=== PATIENT | female | born 2000 | race Caucasian/White ===

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

== ENCOUNTER 2020-09-24 21:44 | Emergency (ER) | payer BC, MEDICAID ==
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
--- NOTE | 2020-09-25 09:45 | CR ---
Chest: 2 views of the chest were obtained. Comparison: Prior chest x-ray 11/29/18. Heart size and mediastinum are within normal limits. Lungs are clear with no acute parenchymal change. No acute osseous finding is appreciated. Impression: 1. Nothing acute is appreciated on 2 view chest x-ray. Diagnostic code #1
== END 2020-09-24 22:49 | disposition home or self-care (01) ==
LOC: JD.ED 21:44
DX: T59.891A Toxic effect of other specified gases, fumes and vapors, accidental (unintentional), initial encounter (principal); J68.0 Bronchitis and pneumonitis due to chemicals, gases, fumes and vapors; Z72.0 Tobacco use; Z91.018 Allergy to other foods; Z91.040 Latex allergy status
CPT/HCPCS: 71046; 71046-26; 99282; 99284-25

== ENCOUNTER 2020-10-06 19:00 | Emergency (ER) | payer BC, MEDICAID ==
[2020-10-06] MEDS ORDERED: cefTRIAXone 1 GM, Lidocaine 1% 2.1 ML IM ONE ×2 (20:25)
--- NOTE | 2020-10-06 20:40 | EDM.PDOC ---
ED HPI GENERAL MEDICAL PROBLEM - General Chief Complaint: ENT Problem Stated Complaint: TOOTH PAIN/RT CHEEK SWOLLEN Time Seen by Provider: 10/06/20 19:11 Source of Information: Reports: Patient History Limitations: Reports: No Limitations - History of Present Illness INITIAL COMMENTS - FREE TEXT/NARRATIVE: The patient was seen earlier today for a dental issue. She apparently had caries filled. This was in the upper teeth in the range of 2 and 3. Subsequent to this there has been an extreme amount of pain. She has had dental work done in the past and has never experienced pain of the severity. There is also some swelling and redness of the right side of her face. LMP approximately 3 weeks ago. Recent home test negative. Allergies include latex and also she is intolerant of morphine. 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 She takes no medications on a regular basis. No chronic conditions otherwise. She has been taking ibuprofen and similar drugs during the day without relief. Her dentist has not been available by telephone and she came to the ER because of that level of discomfort. There has been no fever or any other issue. No fever. No respiratory symptoms. Patient is a smoker. Right Cheek Pain Score (Numeric/FACES): 8 - Related Data Allergies Allergy/AdvReac Type Severity Reaction Status Date / Time grapefruit Allergy Anaphylactic Verified 09/24/20 21:51 Shock latex Allergy Rash Verified 09/24/20 21:51 Home Meds: Home Meds . 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 MEAT History: Reports: Endometriosis Musculoskeletal History: Reports: Connective Tissue Disease Neurological History: Reports: None Psychiatric History: Reports: Anxiety, Depression, PTSD Endocrine/Metabolic History: Reports: None Hematologic History: Reports: None Immunologic History: Reports: None Oncologic (Cancer) History: Reports: None Dermatologic History: Reports: None - Infectious Disease History Infectious Disease History: Reports: None - Past Surgical History HEENT Surgical History: Reports: Oral Surgery, Other (See Below) Cardiovascular Surgical History: Reports: None Respiratory Surgical History: Reports: None Female Surgical History: Reports: D&C Neurological Surgical History: Reports: None Musculoskeletal Surgical History: Reports: Shoulder Surgery, Other (See Below) Other Musculoskeletal Surgeries/Procedures:: 6 surgeries, bilateral knee reconstruction Dermatological Surgical History: Reports: None Social & Family History - Family History Family Medical History: No Pertinent Family History - Tobacco Use Tobacco Use Status *Q: Current Every Day Tobacco User Years of Tobacco use: 1 Packs/Tins Daily: 0.2 - Caffeine Use Caffeine Use: Reports: None - Recreational Drug Use Recreational Drug Use: No - Living Situation & Occupation Living situation: Reports: (), with Significant Other (Drake fragosorimia + his family), with Family (1 child) Occupation: Unemployed ED ROS ENT - Review of Systems Review Of Systems: Comprehensive ROS is negative, except as noted in HPI. ED EXAM, ENT - Physical Exam Exam: See Below Text/Narrative:: On exam the patient is alert and in no distress but looks uncomfortable. Head normocephalic atraumatic. PERRLA, EOMI. Neck is supple. Chest symmetrical, breath sounds full and equal bilaterally. Heart is regular. Abdomen soft nontender. No flank tenderness. No peripheral edema cyanosis or clubbing of the digits. Skin is warm and dry. Neurologically the patient is grossly intact with fluent speech and no sensory or motor deficit. On examination of the oral cavity there is tenderness and teeth in the range of 2-3. No drainage. No obvious evidence of abscess. There is puffiness and tenderness of the right cheek area. No erythema at this point. Course - Vital Signs Text/Narrative:: Discussed fully with patient and her at bedside. There is evidence of an early odontogenic soft tissue infection in the cheek on the right side. The patient will seek medical attention tomorrow first thing. She is going to see a dentist and if she cannot be seen early in the day in [place] she will go to [facility]. She will receive 1 g of Rocephin IM. Further antibiotic use at the discretion of dentist seeing her tomorrow. Discussed comfort medications. Patient has been taking ibuprofen insufficient amounts that I do not want to give her Toradol. She is leery of having narcotic analgesia. She is being issued to 1 mg Ativan's to take when she gets home she may repeat the 1 mg dose after 1 hour if she is not comfortable. Strict precautions for return to ER. Last Recorded V/S: Last Vital Signs Temp 36.6 C 10/06/20 19:16 Pulse 77 10/06/20 19:16 Resp 17 10/06/20 19:16 BP 126/84 10/06/20 19:16 Pulse Ox 100 10/06/20 19:16 - Orders/Labs/Meds Orders: Active Orders 24 hr Category Date Time Status LORazepam [Ativan] Med 10/06/20 20:44 Once 1 mg PO ONETIME ONE Medication Orders Lorazepam (Lorazepam 1 Mg Tab) 1 mg PO ONETIME ONE Stop: 10/06/20 20:45 Labs: Laboratory Tests 10/06/20 Range/Units 19:40 Urine HCG, Qual Negative (NEGATIVE) Meds: Medications Generic Name Dose Route Start Last Admin Trade Name Freq PRN Reason Stop Dose Admin Lorazepam 1 mg 10/06/20 20:44 Lorazepam 1 Mg Tab PO 10/06/20 20:45 ONETIME ONE Discontinued Medications Generic Name Dose Route Start Last Admin Trade Name Freq PRN Reason Stop Dose Admin Ceftriaxone Sodium 1 gm/ 0 gm 10/06/20 20:25 Lidocaine HCl 2.1 ml IM 10/06/20 20:26 ONETIME ONE Lorazepam 1 mg 10/06/20 20:43 Lorazepam 1 Mg Tab PO 10/06/20 20:44 ONETIME ONE Departure - Departure Time of Disposition: 20:47 Disposition: Home, Self-Care 01 Condition: Good Clinical Impression: Cheek swelling, Pain, dental - Discharge Information Referrals: PCP,None [Primary Care Provider] - Forms: ED Department Discharge Additional Instructions: You have been seen for dental pain after a visit with your dentist and also swelling of the cheek adjacent to the area of the dental work. There is concerned that there may be an early soft tissue infection in this area. You are being given 1 g of Rocephin by injection in the muscle. This should suffice until you see a dentist tomorrow so a decision can be made about further antibiotic treatment. The for your comfort we are giving you to 1 mg Ativan is to take. Take 1 when you are ready to go to bed. You may repeat it an hour later if you are still uncomfortable. As you have been taking ibuprofen and medication such as this I do not want to give you more in that category. As you have had problems with narcotics in the past we will use sedation to get you through the night. Any fever or other issue that you cannot manage in the meantime return to the ER immediately. You will see a dentist tomorrow without fail we are certain. Sepsis Event Note (ED) - Evaluation Sepsis Screening Result: No Definite Risk - Focused Exam Vital Signs: Vital Signs Temp Pulse Resp BP Pulse Ox 10/06/20 19:16 36.6 C 77 17 126/84 100 - My Orders Last 24 Hours: My Active Orders 10/06/20 20:44 LORazepam [Ativan] 1 mg PO ONETIME ONE - Assessment/Plan Last 24 Hours: My Active Orders 10/06/20 20:44 LORazepam [Ativan] 1 mg PO ONETIME ONE
[2020-10-06] MEDS ORDERED: LORazepam 1 MG Tab PO ONE ×2 (20:43→20:44)
== END 2020-10-06 21:01 | disposition home or self-care (01) ==
LOC: JD.ED 19:00
DX: K08.89 Other specified disorders of teeth and supporting structures (principal); Z91.018 Allergy to other foods; Z91.040 Latex allergy status; Z72.0 Tobacco use
CPT/HCPCS: 81025; 96372; 99283; A9270; J0696

== ENCOUNTER 2021-04-09 14:03 | Emergency (ER) | payer BC, MEDICAID ==
--- NOTE | 2021-04-09 14:51 | EDM.PDOC ---
ED HPI GENERAL MEDICAL PROBLEM - General Chief Complaint: ENT Problem Stated Complaint: JAW\\ EAR PAIN Time Seen by Provider: 04/09/21 14:34 Source of Information: Reports: Patient, RN Notes Reviewed History Limitations: Reports: No Limitations - History of Present Illness INITIAL COMMENTS - FREE TEXT/NARRATIVE: Patient is a 20-year-old female presenting to the emergency department with complaints of left upper jaw pain with radiation into her left ear. Reports symptoms began a few days ago and have been progressively worsening. She is unsure if it is coming from a tooth or her ear. Denies any fever, chills, nausea, or vomiting. She has been taking Advil with little relief. She reports that she did have her lower wisdom teeth out, however her upper wisdom teeth "never came in". Left Jaw Pain Score (Numeric/FACES): 8 - Related Data Allergies Allergy/AdvReac Type Severity Reaction Status Date / Time grapefruit Allergy Anaphylactic Verified 04/09/21 14:23 Shock latex Allergy Rash Verified 04/09/21 14:23 Home Meds: Home Meds Acetaminophen/Codeine [Tylenol with Codeine No.3 300MG/30MG] 1 tab PO Q4H PRN #12 tab 04/09/21 [Rx] Amoxicillin/Clavulanate K [Augmentin 875-125 MG] 1 tab PO BID 10 Days #20 tab 04/09/21 [Rx] Past Medical History HEENT History: Reports: None Cardiovascular History: Reports: None Respiratory History: Reports: None Gastrointestinal History: Reports: None Genitourinary History: Reports: None 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 History: 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: Endometriosis Musculoskeletal History: Reports: Connective Tissue Disease Neurological History: Reports: None Psychiatric History: Reports: Anxiety, Depression, PTSD Endocrine/Metabolic History: Reports: None Hematologic History: Reports: None Immunologic History: Reports: None Oncologic (Cancer) History: Reports: None Dermatologic History: Reports: None - Infectious Disease History Infectious Disease History: Reports: None - Past Surgical History Head Surgeries/Procedures: Reports: None HEENT Surgical History: Reports: Oral Surgery, Other (See Below) Cardiovascular Surgical History: Reports: None Respiratory Surgical History: Reports: None GI Surgical History: Reports: None Female Surgical History: Reports: D&C Endocrine Surgical History: Reports: None Neurological Surgical History: Reports: None Musculoskeletal Surgical History: Reports: Shoulder Surgery, Other (See Below) Other Musculoskeletal Surgeries/Procedures:: 6 surgeries, bilateral knee reconstruction Oncologic Surgical History: Reports: None Dermatological Surgical History: Reports: None Social & Family History - Family History Family Medical History: No Pertinent Family History - Tobacco Use Tobacco Use Status *Q: Current Every Day Tobacco User Years of Tobacco use: 2 Packs/Tins Daily: 2.5 - Caffeine Use Caffeine Use: Reports: Coffee - Recreational Drug Use Recreational Drug Use: No - Living Situation & Occupation Living situation: Reports: (), with Significant Other (Boyfriend + his family), with Family (1 child) Occupation: Unemployed ED ROS ENT - Review of Systems Review Of Systems: Comprehensive ROS is negative, except as noted in HPI. ED EXAM, ENT - Physical Exam Exam: See Below Exam Limited By: No Limitations General Appearance: Alert, WD/WN, No Apparent Distress Mouth/Throat: Normal Inspection, Normal Lips, Normal Oropharynx, Other (Small area of tenderness and induration in the gums proximal to tooth #2. No obvious dental caries or dental fracture.) Respiratory/Chest: No Respiratory Distress, Lungs Clear, Normal Breath Sounds, No Accessory Muscle Use, Chest Non-Tender Cardiovascular: Normal Peripheral Pulses, Regular Rate, Rhythm, No Edema, No Gallop, No JVD, No Murmur, No Rub Neurological: Alert, Oriented, CN II-XII Intact, Normal Cognition, Normal Gait, Normal Reflexes, No Motor/Sensory Deficits Psychiatric: Normal Affect, Normal Mood Skin: Warm, Dry, Intact, Normal Color, No Rash Course - Vital Signs Last Recorded V/S: Last Vital Signs Temp 99.0 F 04/09/21 14:21 Pulse 73 04/09/21 14:21 Resp 18 04/09/21 14:21 BP 117/89 04/09/21 14:21 Pulse Ox 99 04/09/21 14:21 - Re-Assessments/Exams Free Text/Narrative Re-Assessment/Exam: Patient is a 20-year-old female presenting to the emergency department complaints of left upper jaw pain with radiation to her left ear. Exam of the left ear is normal. She does have a very small area of tenderness and induration palpable to the gums above tooth #2. No obvious dental caries or fractures of that tooth. Patient will be started on Augmentin as well as Tylenol with codeine. Discussed that she should follow-up with a dentist as soon as possible. She verbalized understanding. Discharge instructions as documented. Departure - Departure Time of Disposition: 14:43 Disposition: Home, Self-Care 01 Condition: Good Clinical Impression: Pain, dental - Discharge Information *PRESCRIPTION DRUG MONITORING PROGRAM REVIEWED*: Yes *COPY OF PRESCRIPTION DRUG MONITORING REPORT IN PATIENT SERGEY: No Prescriptions: Amoxicillin/Clavulanate K [Augmentin 875-125 MG] 1 tab PO BID 10 Days #20 tab Acetaminophen/Codeine [Tylenol with Codeine No.3 300MG/30MG] 1 tab PO Q4H PRN #12 tab PRN Reason: Pain Instructions: Dental Pain Referrals: Lucrecia Owen PA-C [Primary Care Provider] - Forms: ED Department Discharge Additional Instructions: You were seen in the emergency department today for left upper jaw pain radiating to your ear. On exam, there is an area in your left upper gums that is tender which is likely a localized area of possible infection. You have been started on Augmentin which is an antibiotic. Take this medication as prescribed. Recommend routine ibuprofen 600 mg every 6 hours. For pain not relieved by this, a prescription of Tylenol with codeine has been provided. Take this only as prescribed. Do not work or drive for 12 hours after taking this as it can be sedating. Recommend follow-up with your dentist as soon as possible. If you fail to experience improvement over the next few days or develop any worsening symptoms, please not hesitate to return to the emergency department for reevaluation. Sepsis Event Note (ED) - Focused Exam Vital Signs: Vital Signs Temp Pulse Resp BP Pulse Ox 04/09/21 14:21 99.0 F 73 18 117/89 99
== END 2021-04-09 15:10 | disposition home or self-care (01) ==
LOC: JD.ED 14:03
DX: K08.89 Other specified disorders of teeth and supporting structures (principal); Z72.0 Tobacco use; Z91.018 Allergy to other foods; Z91.040 Latex allergy status
CPT/HCPCS: 99283

== ENCOUNTER 2021-05-31 18:34 | Emergency (ER) | payer BC, MEDICAID ==
[2021-05-31] MEDS ORDERED: predniSONE 20 MG Tab PO ONE (19:09)
--- NOTE | 2021-05-31 19:19 | EDM.PDOC ---
ED HPI GENERAL MEDICAL PROBLEM - General Chief Complaint: Allergic Reaction Stated Complaint: REACTION TO HPV VACCINE Time Seen by Provider: 05/31/21 19:02 Source of Information: Reports: Patient, RN Notes Reviewed History Limitations: Reports: No Limitations - History of Present Illness INITIAL COMMENTS - FREE TEXT/NARRATIVE: Patient is a 21-year-old female presenting to the emergency department complaints of pain and swelling to her left upper arm. Reports 2 days ago she got her second HPV vaccination. Immediately following the vaccine, she began having pain in her arm as well as felt "a little knot ". The swelling has increased since that time. States it hurts to move her shoulder. She is had no known fever, but states that she has felt "hot "intermittently. She contacted her primary care provider today who advised there is a localized reaction recommended cool compresses, ibuprofen, and Zyrtec. She has not been able to apply ice to the area. Did take ibuprofen earlier today did not have access to Zyrtec but did take 2 Benadryl with little relief. Denies any shortness of breath or itching in her throat. Had no reaction to her first HPV vaccination. Left Upper Arm Pain Score (Numeric/FACES): 7 - Related Data Allergies Allergy/AdvReac Type Severity Reaction Status Date / Time grapefruit Allergy Anaphylactic Verified 04/09/21 14:23 Shock latex Allergy Rash Verified 04/09/21 14:23 Home Meds: Home Meds . 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 History: Reports: Endometriosis Musculoskeletal History: Reports: Connective Tissue Disease Neurological History: Reports: None Psychiatric History: Reports: Anxiety, Depression, PTSD Endocrine/Metabolic History: Reports: None Hematologic History: Reports: None Immunologic History: Reports: None Oncologic (Cancer) History: Reports: None Dermatologic History: Reports: None - Infectious Disease History Infectious Disease History: Reports: None - Past Surgical History Head Surgeries/Procedures: Reports: None HEENT Surgical History: Reports: Oral Surgery, Other (See Below) Cardiovascular Surgical History: Reports: None Respiratory Surgical History: Reports: None GI Surgical History: Reports: None Female Surgical History: Reports: D&C Endocrine Surgical History: Reports: None Neurological Surgical History: Reports: None Musculoskeletal Surgical History: Reports: Shoulder Surgery, Other (See Below) Other Musculoskeletal Surgeries/Procedures:: 6 surgeries, bilateral knee reconstruction Oncologic Surgical History: Reports: None Dermatological Surgical History: Reports: None Social & Family History - Family History Family Medical History: No Pertinent Family History - Caffeine Use Caffeine Use: Reports: Coffee - Living Situation & Occupation Living situation: Reports: (), with Significant Other (Boyfriend + his family), with Family (1 child) Occupation: Unemployed ED ROS ALLERGIC REACTION - Review of Systems Review Of Systems: Comprehensive ROS is negative, except as noted in HPI. ED EXAM GENERAL NO PERIP PULSE - Physical Exam Exam: See Below Exam Limited By: No Limitations General Appearance: Alert, WD/WN, No Apparent Distress Respiratory/Chest: No Respiratory Distress, Lungs Clear, Normal Breath Sounds, No Accessory Muscle Use, Chest Non-Tender Cardiovascular: Normal Peripheral Pulses, Regular Rate, Rhythm, No Edema, No Gallop, No JVD, No Murmur, No Rub Extremities: Other (3 cm area of redness and induration to the left deltoid. No open areas or drainage.) Neurological: Alert, Oriented, CN II-XII Intact, Normal Cognition, Normal Gait, Normal Reflexes, No Motor/Sensory Deficits Psychiatric: Normal Affect, Normal Mood Course - Vital Signs Last Recorded V/S: Last Vital Signs Temp 98.1 F 05/31/21 18:47 Pulse 88 05/31/21 18:47 Resp 16 05/31/21 18:47 BP 126/87 05/31/21 18:47 Pulse Ox 100 05/31/21 18:47 - Orders/Labs/Meds Meds: Medications Discontinued Medications Generic Name Dose Route Start Last Admin Trade Name Ofelia PRN Reason Stop Dose Admin Prednisone 20 mg 05/31/21 19:09 Prednisone 20 Mg Tab PO 05/31/21 19:10 ONETIME ONE - Re-Assessments/Exams Free Text/Narrative Re-Assessment/Exam: Patient is a 21-year-old female presenting to the emergency department with loca lized reaction to second dose of HPV vaccination. She received this 2 days ago reports it has been getting progressively more painful. On exam, there is a 3 cm area of induration and redness. I will give patient single dose of prednisone 20 mg. Recommend she purchase [id number] Rita, use ice intermittently, and routine ibuprofen. Discussed return precautions. Discharge instructions as documented. Departure - Departure Time of Disposition: 19:16 Disposition: Home, Self-Care 01 Condition: Good Clinical Impression: Adverse reaction to human papillomavirus vaccine Qualifiers: Encounter type: initial encounter Qualified Code(s): T50.B95A - Adverse effect of other viral vaccines, initial encounter - Discharge Information *PRESCRIPTION DRUG MONITORING PROGRAM REVIEWED*: No *COPY OF PRESCRIPTION DRUG MONITORING REPORT IN PATIENT SERGEY: No Referrals: Lucrecia Owen PA-C [Primary Care Provider] - Additional Instructions: Use ibuprofen 600 mg every 6 hours as needed for pain. Apply ice for 20 minutes every 2 hours to the area. Purchase [id number] Rita and take this once daily. If you should experience any new or worsening symptoms of concern, please not hesitate to return to ER for reevaluation. Sepsis Event Note (ED) - Evaluation Sepsis Screening Result: No Definite Risk - Focused Exam Vital Signs: Vital Signs Temp Pulse Resp BP Pulse Ox 05/31/21 18:47 98.1 F 88 16 126/87 100
== END 2021-05-31 19:30 | disposition home or self-care (01) ==
LOC: JD.ED 18:34
DX: M79.602 Pain in left arm (principal); T50.B95A Adverse effect of other viral vaccines, initial encounter; Z91.040 Latex allergy status; Z91.018 Allergy to other foods
CPT/HCPCS: 99283; J7512

== ENCOUNTER 2021-07-22 09:37 | Emergency (ER) | payer BC, MEDICAID ==
[2021-07-22] MEDS ORDERED: Ondansetron 4 MG/2 ML SDV IVPUSH ONE (10:01)
[2021-07-22] MEDS ORDERED: Sodium Chloride 0.9% 10 ML Syringe FLUSH PRN (10:01)
[2021-07-22] MEDS ORDERED: Sodium Chloride 0.9% 1,000 ML IV SCH (10:15)
[2021-07-22] MEDS ORDERED: Lactated Ringers 1,000 ML IV SCH (10:30)
[2021-07-22] MEDS ORDERED: HYDROmorphone 0.5 MG/0.5 ML Syringe IVPUSH ONE (10:34)
[2021-07-22] MEDS ORDERED: Metoclopramide 10 MG/2 ML SDV IVPUSH ONE (10:35)
[2021-07-22 10:53] LABS: CORONAVIRUS COVID-19 NAA NEGATIVE (NEGATIVE)
== END 2021-07-22 12:30 | disposition home or self-care (01) ==
LOC: JD.ED 09:37
DX: A09 Infectious gastroenteritis and colitis, unspecified (principal); Z91.018 Allergy to other foods; Z91.040 Latex allergy status; Z20.822 Contact with and (suspected) exposure to COVID-19
CPT/HCPCS: 0240U; 36415; 80053; 82009; 83605; 83690; 83735; 84702; 85025; 86140; 96374; 96375; 99284; J1170; J2765; J7030

== ENCOUNTER 2021-09-26 10:57 | Day surgery (SDC) | payer BC, MEDICAID ==
[2021-09-26] MEDS ORDERED: Ondansetron 4 MG/2 ML SDV IVPUSH ONE (11:25)
[2021-09-26] MEDS ORDERED: Sodium Chloride 0.9% 10 ML Syringe FLUSH PRN (11:25)
[2021-09-26] MEDS ORDERED: Sodium Chloride 0.9% 1,000 ML IV SCH (11:30)
[2021-09-26] MEDS ORDERED: HYDROmorphone 0.5 MG/0.5 ML Syringe IVPUSH ONE (12:03)
[2021-09-26] MEDS ORDERED: ceFAZolin 2 GM in Sodium Chloride 0.9% 50 ML IV ONE (14:24)
[2021-09-26] MEDS ORDERED: Bupivacaine 0.5%/EPINEPHrine 1:200,000 50 ML MDV ONE (15:03)
[2021-09-26] MEDS ORDERED: Iopamidol 612 MG/ML 50 ML SDV ONE (15:03)
[2021-09-26] MEDS ORDERED: Sodium Chloride 0.9% 50 ML SDV ONE (15:03)
[2021-09-26] MEDS ORDERED: fentaNYL 100 MCG/2 ML SDV ONE ×2 (15:34→16:32)
[2021-09-26] MEDS ORDERED: Midazolam 1 MG/ML 2 ML SDV ONE (15:34)
[2021-09-26] MEDS ORDERED: Propofol 200 MG/20 ML SDV ONE (15:34)
[2021-09-26] MEDS ORDERED: Lidocaine 1% 5 ML VIAL ONE (15:34)
[2021-09-26] MEDS ORDERED: Rocuronium 50 MG/5 ML Vial ONE (15:35)
[2021-09-26] MEDS ORDERED: ceFAZolin 1 GM Vial ONE (16:27)
[2021-09-26] MEDS ORDERED: Ondansetron 4 MG/2 ML SDV ONE (16:28)
[2021-09-26] MEDS ORDERED: Dexamethasone 4 MG/ML 5 ML MDV ONE (16:28)
[2021-09-26] MEDS ORDERED: HYDROmorphone 0.5 MG/0.5 ML Syringe IVPUSH PRN (16:48)
[2021-09-26] MEDS ORDERED: fentaNYL 100 MCG/2 ML SDV IVPUSH PRN (16:48)
[2021-09-26] MEDS ORDERED: Ondansetron 4 MG/2 ML SDV IVPUSH PRN (16:48)
== END 2021-09-26 18:30 | disposition home or self-care (01) ==
LOC: JD.ED 10:57 → JD.SDS 14:17
PROVIDERS: ATTEND Surgery
DX: K82.8 Other specified diseases of gallbladder (principal); F17.210 Nicotine dependence, cigarettes, uncomplicated; Z91.040 Latex allergy status; Z91.018 Allergy to other foods; Z98.890 Other specified postprocedural states; Z01.812 Encounter for preprocedural laboratory examination; Z20.822 Contact with and (suspected) exposure to COVID-19
CPT/HCPCS: 36415; 47563; 76000; 76705; 80053; 81001; 82248; 82977; 83690; 83735; 85025; 86140; 87635; J0690; J1100; J1170; J2250; J2405; J2704; J2710; J3010; J3490; J7030; Q9967; 00790; 99140; 99285; U0002

== ENCOUNTER 2021-09-28 12:31 | Emergency (ER) | payer BC, MEDICAID ==
[2021-09-28] MEDS ORDERED: Lactated Ringers 1,000 ML IV ONE (13:14)
[2021-09-28] MEDS ORDERED: Ondansetron 4 MG/2 ML SDV IVPUSH ONE (13:14)
[2021-09-28] MEDS ORDERED: HYDROmorphone 1 MG/ML Syringe IVPUSH ONE (13:14)
== END 2021-09-28 15:48 | disposition home or self-care (01) ==
LOC: JD.ED 12:31
DX: R10.13 Epigastric pain (principal); Z91.040 Latex allergy status; Z88.5 Allergy status to narcotic agent; Z91.018 Allergy to other foods; Z90.49 Acquired absence of other specified parts of digestive tract; Z72.0 Tobacco use
CPT/HCPCS: 36415; 74019; 80053; 83605; 83690; 85025; 96374; 96375; 99284; J1170; J2405; J7120

== ENCOUNTER 2022-03-29 06:59 | Emergency (ER) | payer BC, MEDICAID ==
[2022-03-29] MEDS ORDERED: Cyclobenzaprine 10 MG Tab PO ONE (07:47)
[2022-03-29] MEDS ORDERED: Ketorolac 15 MG/ML SDV IM ONE (07:47)
== END 2022-03-29 09:45 | disposition home or self-care (01) ==
LOC: JD.ED 06:59
DX: S22.41XA Multiple fractures of ribs, right side, initial encounter for closed fracture (principal); F17.210 Nicotine dependence, cigarettes, uncomplicated; Z91.018 Allergy to other foods; Z91.040 Latex allergy status; Z88.6 Allergy status to analgesic agent; Z79.899 Other long term (current) drug therapy; Z90.49 Acquired absence of other specified parts of digestive tract; X50.1XXA Overexertion from prolonged static or awkward postures, initial encounter
CPT/HCPCS: 71046; 71046-26; 96372; 99283; A9270-GY; J1885

== ENCOUNTER 2022-04-21 12:12 | Emergency (ER) | payer MEDICAID ==
[2022-04-21] MEDS ORDERED: Sodium Chloride 0.9% 10 ML Syringe FLUSH PRN (14:52)
[2022-04-21] MEDS ORDERED: Lactated Ringers 1,000 ML IV ONE (14:53)
[2022-04-21] MEDS ORDERED: Famotidine 20 MG/2 ML SDV IVPUSH ONE (14:53)
[2022-04-21] MEDS ORDERED: Ketorolac 30 MG/ML SDV IVPUSH ONE (14:53)
[2022-04-21] MEDS ORDERED: Ondansetron 4 MG/2 ML SDV IVPUSH ONE (14:53)
[2022-04-21 15:37] LABS: ESTIMATED GFR 107 mL/min (>60)
== END 2022-04-21 16:53 | disposition home health service (06) ==
LOC: JD.ED 12:12
DX: R10.84 Generalized abdominal pain (principal); R11.10 Vomiting, unspecified; R19.7 Diarrhea, unspecified; Z91.018 Allergy to other foods; Z91.040 Latex allergy status; Z88.5 Allergy status to narcotic agent
CPT/HCPCS: 36415; 80053; 83690; 84702; 85025; 96361; 96374; 96375; 99284; J1885; J2405; J3490; J7120; 99283

== ENCOUNTER 2022-04-24 13:00 | Emergency (ER) | payer MEDICAID ==
[2022-04-24] MEDS ORDERED: Sodium Chloride 0.9% 1,000 ML IV ONE (13:58)
[2022-04-24] MEDS ORDERED: Metoclopramide 10 MG/2 ML SDV IVPUSH ONE (13:58)
[2022-04-24] MEDS ORDERED: Sodium Chloride 0.9% 10 ML Syringe FLUSH PRN (13:58)
[2022-04-24] MEDS ORDERED: diphenhydrAMINE 50 MG/ML SDV IVPUSH ONE (13:58)
[2022-04-24] MEDS ORDERED: Ketorolac 30 MG/ML SDV IVPUSH ONE (13:58)
[2022-04-24] MEDS ORDERED: HYDROmorphone 0.5 MG/0.5 ML Syringe IVPUSH ONE (15:36)
[2022-04-24 15:42] LABS: CORONAVIRUS COVID-19 NAA POSITIVE (NEGATIVE)
== END 2022-04-24 16:40 | disposition home or self-care (01) ==
LOC: JD.ED 13:00
DX: U07.1 COVID-19 (principal); Z72.0 Tobacco use; Z88.5 Allergy status to narcotic agent; Z91.018 Allergy to other foods; Z91.040 Latex allergy status; Z79.899 Other long term (current) drug therapy
CPT/HCPCS: 0240U; 36415; 80053; 85025; 96361; 96374; 96375; 99284; J1170; J1200; J1885; J2765; J3490; J7030; 99282

== ENCOUNTER 2022-06-17 18:55 | Emergency (ER) | payer BC, MEDICAID ==
[2022-06-17] MEDS ORDERED: Acetaminophen/HYDROcodone 325-5 MG Tab PO ONE ×2 (22:16→22:17)
== END 2022-06-17 22:55 | disposition home or self-care (01) ==
LOC: JD.ED 18:55
DX: O03.9 Complete or unspecified spontaneous abortion without complication (principal); Z91.018 Allergy to other foods; Z91.040 Latex allergy status; Z88.5 Allergy status to narcotic agent
CPT/HCPCS: 36415; 76817; 80048; 84702; 85025; 99284; A9270

== ENCOUNTER 2022-06-21 20:12 | Emergency (ER) | payer MEDICAID ==
[2022-06-21] MEDS ORDERED: Sodium Chloride 0.9% 1,000 ML IV STA (20:45)
[2022-06-21] MEDS ORDERED: Sodium Chloride 0.9% 10 ML Syringe FLUSH PRN (20:45)
[2022-06-21] MEDS ORDERED: Ondansetron 4 MG/2 ML SDV IVPUSH ONE (20:59)
[2022-06-21] MEDS ORDERED: Ketorolac 30 MG/ML SDV IVPUSH ONE ×2 (20:59→22:14)
[2022-06-21] MEDS ORDERED: HYDROmorphone 0.5 MG/0.5 ML Syringe IVPUSH ONE (22:50)
== END 2022-06-21 23:26 | disposition home or self-care (01) ==
LOC: JD.ED 20:12
DX: O03.9 Complete or unspecified spontaneous abortion without complication (principal); Z91.018 Allergy to other foods; Z91.040 Latex allergy status; Z88.5 Allergy status to narcotic agent
CPT/HCPCS: 36415; 76817; 80053; 81001; 84702; 85025; 96361; 96374; 96375; 96376; 99284; J1170; J1885; J2405; J3490; J7030

== ENCOUNTER 2022-06-27 15:02 | Emergency (ER) | payer MEDICAID ==
[2022-06-27] MEDS ORDERED: Sodium Chloride 0.9% 10 ML Syringe FLUSH PRN (15:13)
[2022-06-27] MEDS ORDERED: Ondansetron 4 MG/2 ML SDV IVPUSH ONE (15:30)
[2022-06-27] MEDS ORDERED: Sodium Chloride 0.9% 1,000 ML IV ONE (15:30)
[2022-06-27] MEDS ORDERED: Ketorolac 30 MG/ML SDV IVPUSH ONE (15:30)
[2022-06-27 16:26] LABS: CORONAVIRUS COVID-19 NAA NEGATIVE (NEGATIVE)
== END 2022-06-27 17:47 | disposition home or self-care (01) ==
LOC: JD.ED 15:02
DX: J10.1 Influenza due to other identified influenza virus with other respiratory manifestations (principal); Z91.040 Latex allergy status; Z88.5 Allergy status to narcotic agent; Z91.018 Allergy to other foods; Z20.822 Contact with and (suspected) exposure to COVID-19
CPT/HCPCS: 0240U; 36415; 71045; 80053; 83690; 83735; 84484; 85025; 85379; 85610; 85730; 93005; 96361; 96374; 96375; 99285; J1885; J2405; J3490; J7030

== ENCOUNTER 2022-06-28 11:33 | Emergency (ER) | payer MEDICAID ==
[2022-06-28] MEDS ORDERED: fentaNYL 100 MCG/2 ML SDV IVPUSH ONE ×2 (12:16→13:36)
[2022-06-28] MEDS ORDERED: Lactated Ringers 1,000 ML IV SCH (12:30)
[2022-06-28] MEDS ORDERED: Iopamidol 612 MG/ML 100 ML Bottle IVPUSH ONE (13:16)
[2022-06-28] MEDS ORDERED: Sodium Chloride 0.9% 10 ML Syringe FLUSH PRN (13:16)
[2022-06-28] MEDS ORDERED: Acetaminophen/HYDROcodone 325-10 MG Tab PO ONE (15:03)
== END 2022-06-28 15:35 | disposition home or self-care (01) ==
LOC: JD.ED 11:33
DX: R10.11 Right upper quadrant pain (principal); R07.81 Pleurodynia; Z91.018 Allergy to other foods; Z91.040 Latex allergy status; Z88.5 Allergy status to narcotic agent; Z72.0 Tobacco use
CPT/HCPCS: 36415; 71260; 74177; 84703; 93005; 96361; 96374; 96376; 99285; A9270; J3010; J3490; J7120; Q9967

== ENCOUNTER 2022-07-02 13:33 | Emergency (ER) | payer MEDICAID | END 2022-07-02 20:01 | LOC: JD.ED 13:33 | DX: Z53.21 Procedure and treatment not carried out due to patient leaving prior to being seen by health care provider (principal) | CPT/HCPCS: 93005 ==

== ENCOUNTER 2022-07-03 02:18 | Emergency (ER) | payer MEDICAID ==
[2022-07-03] MEDS ORDERED: Acetaminophen/HYDROcodone 325-5 MG Tab PO ONE (03:55)
== END 2022-07-03 05:03 | disposition home or self-care (01) ==
LOC: JD.ED 02:18
DX: R07.89 Other chest pain (principal); Z91.040 Latex allergy status; Z88.5 Allergy status to narcotic agent; Z86.16 Personal history of COVID-19
CPT/HCPCS: 71045; 71045-26; 93005; 99285; A9270-GY

== ENCOUNTER 2022-07-19 19:44 | Emergency (ER) | payer OTHER, MEDICAID ==
[2022-07-19] MEDS: Sodium Chloride 0.9% 10 ML Syringe FLUSH PRN ×2 (19:45→20:53)
[2022-07-19] MEDS ORDERED: Ondansetron 4 MG/2 ML SDV IVPUSH ONE (20:17)
[2022-07-19] MEDS ORDERED: HYDROmorphone 0.5 MG/0.5 ML Syringe IVPUSH ONE (20:17)
[2022-07-19] MEDS ORDERED: Sodium Chloride 0.9% 10 ML Syringe FLUSH PRN (20:49)
[2022-07-19] MEDS ORDERED: Iopamidol 755 Mg/ML 100 ML Bottle IVPUSH ONE (20:49)
[2022-07-19] MEDS ORDERED: HYDROmorphone 1 MG/ML Syringe IVPUSH ONE (21:55)
== END 2022-07-19 22:26 | disposition home or self-care (01) ==
LOC: JD.ED 19:44
DX: S06.0X0A Concussion without loss of consciousness, initial encounter (principal); S39.012A Strain of muscle, fascia and tendon of lower back, initial encounter; S30.1XXA Contusion of abdominal wall, initial encounter; S20.211A Contusion of right front wall of thorax, initial encounter; Z91.040 Latex allergy status; Z88.5 Allergy status to narcotic agent; Z91.018 Allergy to other foods; V49.40XA Driver injured in collision with unspecified motor vehicles in traffic accident, initial encounter; Y92.410 Unspecified street and highway as the place of occurrence of the external cause
CPT/HCPCS: 36415; 70450; 71260; 72125; 73552; 74177; 80053; 80306; 80307; 81001; 83690; 84703; 85025; 96374; 96375; 96376; 99284; J1170; J2405; J3490; Q9967

== ENCOUNTER 2022-07-26 11:29 | Emergency (ER) | payer MEDICAID ==
[2022-07-26] MEDS ORDERED: Ondansetron 4 MG/2 ML SDV IVPUSH ONE (12:22)
[2022-07-26] MEDS ORDERED: Ketorolac 30 MG/ML SDV IVPUSH ONE (12:22)
[2022-07-26] MEDS ORDERED: Sodium Chloride 0.9% 1,000 ML IV STA (12:22)
[2022-07-26] MEDS ORDERED: HYDROmorphone 0.5 MG/0.5 ML Syringe IVPUSH ONE (12:22)
[2022-07-26] MEDS ORDERED: diphenhydrAMINE 50 MG/ML SDV IVPUSH ONE (12:23)
[2022-07-26 13:28] LABS: CORONAVIRUS COVID-19 NAA NEGATIVE (NEGATIVE)
[2022-07-26 13:42] LABS: ESTIMATED GFR 92 mL/min (>60)
== END 2022-07-26 14:20 | disposition home or self-care (01) ==
LOC: JD.ED 11:29
DX: G43.909 Migraine, unspecified, not intractable, without status migrainosus (principal); T59.91XA Toxic effect of unspecified gases, fumes and vapors, accidental (unintentional), initial encounter; J68.0 Bronchitis and pneumonitis due to chemicals, gases, fumes and vapors; F17.210 Nicotine dependence, cigarettes, uncomplicated; Z91.040 Latex allergy status; Z91.018 Allergy to other foods; Z88.5 Allergy status to narcotic agent; Z86.16 Personal history of COVID-19; Z20.822 Contact with and (suspected) exposure to COVID-19
CPT/HCPCS: 0241U; 36415; 71046; 80053; 85025; 86140; 96361; 96374; 96375; 99284; J1170; J1200; J1885; J2405; J7030

== ENCOUNTER 2022-09-12 13:39 | Emergency (ER) | payer BC, MEDICAID ==
[2022-09-12] MEDS ORDERED: Ketorolac 30 MG/ML SDV IVPUSH ONE (15:03)
[2022-09-12] MEDS ORDERED: HYDROmorphone 0.5 MG/0.5 ML Syringe IVPUSH ONE ×3 (15:03→17:13)
[2022-09-12] MEDS ORDERED: diphenhydrAMINE 50 MG/ML SDV IVPUSH ONE (15:03)
[2022-09-12] MEDS ORDERED: Sodium Chloride 0.9% 10 ML Syringe FLUSH PRN (15:03)
[2022-09-12] MEDS ORDERED: Metoclopramide 10 MG/2 ML SDV IVPUSH ONE (15:03)
[2022-09-12 16:23] LABS: CORONAVIRUS COVID-19 NAA NEGATIVE (NEGATIVE)
[2022-09-12] MEDS ORDERED: Dexamethasone 10 MG/ML SDV IVPUSH ONE (17:13)
== END 2022-09-12 17:24 | disposition home or self-care (01) ==
LOC: JD.ED 13:39
DX: G43.909 Migraine, unspecified, not intractable, without status migrainosus (principal); Z91.040 Latex allergy status; Z88.5 Allergy status to narcotic agent; Z91.018 Allergy to other foods; Z79.899 Other long term (current) drug therapy; Z20.822 Contact with and (suspected) exposure to COVID-19
CPT/HCPCS: 0241U; 36415; 80053; 85025; 86140; 87651; 96374; 96375; 96376; 99283; J1100; J1170; J1200; J1885; J2765; J3490

== ENCOUNTER 2022-12-23 01:53 | Emergency (ER) | payer MEDICAID ==
[2022-12-23 02:38] LABS: BASOPHILS ABSOLUTE AUTO 0.03 K/mm3 (0.01-0.08); BASOPHILS PERCENT AUTO 0.3 % (0.1-1.2); EOSINOPHILS ABSOLUTE AUTO 0.16 K/mm3 (0.04-0.36); EOSINOPHILS PERCENT AUTO 1.7 (0.7-5.8); HEMATOCRIT 35.7 % (34.1-44.9); HEMOGLOBIN 12.1 gm/dl (11.2-15.7); IMMATURE GRAN ABSOLUTE AUTO 0.01 K/mm3 (0.00-0.10); IMMATURE GRAN PERCENT AUTO 0.1 % (<=1.0); LYMPHOCYTES ABSOLUTE AUTO 2.06 K/mm3 (1.18-3.74); LYMPHOCYTES PERCENT AUTO 21.9 % (19.3-51.7); MEAN CORPUSCULAR HEMOGLOBIN 31.7 pg (25.6-32.2); MEAN CORPUSCULAR HGB CONC 33.9 g/dl (32.2-35.5); MEAN CORPUSCULAR VOLUME 93.5 fl (79.4-94.8); MEAN PLATELET VOLUME 8.7 fl (9.4-12.3); MONOCYTES ABSOLUTE AUTO 0.79 K/mm3 (0.24-0.36); MONOCYTES PERCENT AUTO 8.4 % (4.7-12.5); NEUTROPHILS ABSOLUTE AUTO 6.36 K/mm3 (1.56-6.13); NEUTROPHILS PERCENT AUTO 67.6 % (34.0-71.1); PLATELET COUNT,PLT 218 K/mm3 (182-369); RED BLOOD CELL COUNT 3.82 M/mm3 (3.98-5.22); WHITE BLOOD CELL COUNT,WBC 9.41 K/mm3 (3.98-10.04)
[2022-12-23 03:07] LABS: A/G RATIO 1.1 (1-2); ALBUMIN 3.1 g/dl (3.4-5.0); ANION GAP 11.1 (5-15); BILIRUBIN TOTAL 0.6 mg/dL (0.2-1.0); CALCIUM 7.9 mg/dL (8.5-10.1); EST CRCL DRUG DOSING (CG) 72.05 mL/min; POTASSIUM,K 3.1 mEq/L (3.5-5.1); TSH 1.627 uIU/mL (0.358-3.74)
[2022-12-23] MEDS ORDERED: Sodium Chloride 0.9% 1,000 ML IV ONE (03:53)
[2022-12-23 03:55] LABS: BARBITURATE SCREEN,URINE NEGATIVE (CUTOFF=200); BENZODIAZEPINES SCREEN,URINE NEGATIVE (CUTOFF=150); BUPRENORPHINE SCREEN,URINE NEGATIVE (CUTOFF=10); METHADONE SCREEN, URINE NEGATIVE (CUTOFF=200); METHAMPHETAMINES SCREEN, URINE PRESUMPTIVE POSITIVE (CUTOFF=500); OXYCODONE SCREEN,URINE NEGATIVE (CUT0FF=100); PROPOXYPHENE SCREEN,URINE NEGATIVE (CUTOFF=300); THC SCREEN,URINE 20 NG/ML NEGATIVE (CUTOFF=50)
[2022-12-23 03:57] LABS: AMPHETAMINES SCREEN, URINE PRESUMPTIVE POSITIVE (CUTOFF=500)
[2022-12-23] MEDS: Potassium Chloride 20 MEQ Tab.ER PO ONE ×2 (08:15→08:28)
[2022-12-23] MEDS ORDERED: Sodium Chloride 0.9% 500 ML IV ONE (09:09)
[2022-12-23] MEDS: Potassium Chloride 10 MEQ in Premix Bag 1 BAG IV SCH ×4 (09:40→13:01)
[2022-12-23] MEDS ORDERED: Lactated Ringers 1,000 ML IV SCH (13:00)
== END 2022-12-23 18:24 | disposition home or self-care (01) ==
LOC: JD.ED 01:53
DX: T43.591A Poisoning by other antipsychotics and neuroleptics, accidental (unintentional), initial encounter (principal); T37.5X1A Poisoning by antiviral drugs, accidental (unintentional), initial encounter; Z87.891 Personal history of nicotine dependence; Z86.16 Personal history of COVID-19; Z91.040 Latex allergy status; Z88.5 Allergy status to narcotic agent; Z91.018 Allergy to other foods
CPT/HCPCS: 36415; 80053; 80143; 80179; 80306; 80307; 81025; 83735; 84443; 85025; 93005; 96361; 96365; 96366; 99284; J3480; J7030; J7120; 93010; A9270-GY

== ENCOUNTER 2023-03-08 11:52 | Emergency (ER) | payer OTHER ==
[2023-03-08] MEDS ORDERED: Ibuprofen 800 MG Tab PO ONE (16:05)
[2023-03-08] MEDS ORDERED: Acetaminophen 325 MG Tab PO ONE (16:05)
== END 2023-03-08 16:15 | disposition home or self-care (01) ==
LOC: JD.ED 11:52
DX: S16.1XXA Strain of muscle, fascia and tendon at neck level, initial encounter (principal); J45.909 Unspecified asthma, uncomplicated; Z91.018 Allergy to other foods; Z91.040 Latex allergy status; Z88.5 Allergy status to narcotic agent; Z79.51 Long term (current) use of inhaled steroids; Z86.16 Personal history of COVID-19; V49.40XA Driver injured in collision with unspecified motor vehicles in traffic accident, initial encounter
CPT/HCPCS: 72040; 99283; A9270

== ENCOUNTER 2023-04-28 16:51 | Emergency (ER) | payer MEDICAID, OTHER ==
[2023-04-28] MEDS ORDERED: Prochlorperazine 5 MG Tab PO ONE ×2 (18:25→18:28)
[2023-04-28] MEDS ORDERED: Prochlorperazine 5 MG Tab PO STA (19:11)
== END 2023-04-28 19:27 | disposition home or self-care (01) ==
LOC: JD.ED 16:51
DX: O21.9 Vomiting of pregnancy, unspecified (principal); O99.891 Other specified diseases and conditions complicating pregnancy; R10.2 Pelvic and perineal pain; O99.511 Diseases of the respiratory system complicating pregnancy, first trimester; J45.909 Unspecified asthma, uncomplicated; Z86.16 Personal history of COVID-19; O99.331 Smoking (tobacco) complicating pregnancy, first trimester; F17.210 Nicotine dependence, cigarettes, uncomplicated; Z91.018 Allergy to other foods; Z91.040 Latex allergy status; Z88.5 Allergy status to narcotic agent; Z3A.01 Less than 8 weeks gestation of pregnancy
CPT/HCPCS: 81025; 99284; Q0164; 99283

== ENCOUNTER 2023-05-10 09:33 | Emergency (ER) | payer OTHER ==
[2023-05-10] MEDS ORDERED: Sodium Chloride 0.9% 10 ML Syringe FLUSH PRN (09:50)
[2023-05-10] MEDS ORDERED: Sodium Chloride 0.9% 1,000 ML IV SCH (10:00)
[2023-05-10 11:20] LABS: BASOPHILS ABSOLUTE AUTO 0.1 K/mm3 (0.0-0.2); EOSINOPHILS ABSOLUTE AUTO 0.1 K/mm3 (0.0-0.4); EOSINOPHILS PERCENT AUTO 2.3 % (0.0-6.0); HEMATOCRIT 37.4 % (37.0-47.0); IMMATURE GRAN ABSOLUTE AUTO 0.01 K/mm3 (0.00-0.05); IMMATURE GRAN PERCENT AUTO 0.2 % (0.0-0.4); LYMPHOCYTES ABSOLUTE AUTO 2.5 K/mm3 (1.0-4.8); LYMPHOCYTES PERCENT AUTO 40.1 % (24.0-44.0); MEAN CORPUSCULAR HGB CONC 34.8 g/dl (32.0-36.0); MEAN CORPUSCULAR VOLUME 92.1 fl (83.0-99.0); MEAN PLATELET VOLUME 8.8 fl (9.4-12.3); MONOCYTES ABSOLUTE AUTO 0.5 K/mm3 (0.0-0.8); MONOCYTES PERCENT AUTO 8.8 % (0.0-8.0); NEUTROPHILS ABSOLUTE AUTO 2.9 K/mm3 (1.8-7.7); NEUTROPHILS PERCENT AUTO 47.6 % (41.0-71.0); PLATELET COUNT,PLT 259 K/mm3 (150-400); RED BLOOD CELL COUNT 4.06 M/mm3 (4.10-5.30); WHITE BLOOD CELL COUNT,WBC 6.14 K/mm3 (3.9-11.3)
[2023-05-10 11:38] LABS: ALBUMIN 3.7 g/dl (3.4-5.0); ANION GAP 10.2 (5-15); BILIRUBIN TOTAL 0.4 mg/dL (0.2-1.0); BUN/CREATININE RATIO 13.8 (14-18); CALCIUM 8.9 mg/dL (8.5-10.1); CREATININE 0.8 mg/dL (0.55-1.02); EST CRCL DRUG DOSING (CG) 101.81 mL/min; POTASSIUM,K 3.2 mEq/L (3.5-5.1); PROTEIN TOTAL,TP 7.4 g/dl (6.4-8.2)
[2023-05-10 12:07] LABS: APPEARANCE,URINE CLEAR (Clear); BILIRUBIN,URINE NEGATIVE (Negative); COLOR,URINE YELLOW (Yellow); GLUCOSE,URINE NEGATIVE (Negative); KETONES,URINE NEGATIVE (Negative); LEUKOCYTE ESTERASE,URINE TRACE (Negative); NITRITE,URINE NEGATIVE (Negative); OCCULT BLOOD,URINE NEGATIVE (Negative); PROTEIN,URINE NEGATIVE (Negative); UROBILINOGEN,URINE 0.2 (0.2-1.0)
[2023-05-10 12:13] LABS: BACTERIA,URINE MODERATE /hpf (FEW); MUCUS,URINE MODERATE /hpf (FEW); RBC,URINE 0-5 /hpf (0-5)
[2023-05-10] MEDS ORDERED: HYDROmorphone 0.5 MG/0.5 ML Syringe IVPUSH ONE (12:30)
== END 2023-05-10 13:30 | disposition home or self-care (01) ==
LOC: JD.ED 09:33
DX: O9A.211 Injury, poisoning and certain other consequences of external causes complicating pregnancy, first trimester (principal); S16.1XXA Strain of muscle, fascia and tendon at neck level, initial encounter; S43.402A Unspecified sprain of left shoulder joint, initial encounter; S63.502A Unspecified sprain of left wrist, initial encounter; O99.511 Diseases of the respiratory system complicating pregnancy, first trimester; J45.909 Unspecified asthma, uncomplicated; Z79.899 Other long term (current) drug therapy; Z88.5 Allergy status to narcotic agent; Z91.040 Latex allergy status; Z91.018 Allergy to other foods; Z3A.09 9 weeks gestation of pregnancy; V49.40XA Driver injured in collision with unspecified motor vehicles in traffic accident, initial encounter
CPT/HCPCS: 36415; 70450; 71045; 72125; 73030; 73090; 76802; 80053; 81001; 83690; 84702; 85025; 96374; 99284; J1170; J3490; J7030

== ENCOUNTER 2023-05-27 06:25 | Emergency (ER) | payer SELFPAY ==
[2023-05-27] MEDS ORDERED: Acetaminophen/HYDROcodone 325-5 MG Tab PO ONE (07:03)
== END 2023-05-27 09:18 | disposition home or self-care (01) ==
LOC: JD.ED 06:25
DX: R07.9 Chest pain, unspecified (principal); M25.551 Pain in right hip; M25.552 Pain in left hip; M25.562 Pain in left knee; Z86.16 Personal history of COVID-19; F17.210 Nicotine dependence, cigarettes, uncomplicated; Z90.49 Acquired absence of other specified parts of digestive tract; Z79.899 Other long term (current) drug therapy; Z91.040 Latex allergy status; Z91.018 Allergy to other foods; Z88.5 Allergy status to narcotic agent; V49.49XA Driver injured in collision with other motor vehicles in traffic accident, initial encounter
CPT/HCPCS: 71046; 72170; 73564; 81025; 99283; A9270

== ENCOUNTER 2023-09-02 16:48 | Emergency (ER) | payer SELFPAY ==
[2023-09-02] MEDS: Ketorolac 30 MG/ML SDV IM ONE (19:58)
[2023-09-02] MEDS: Amoxicillin/Clavulanate K 875-125 MG Tab PO ONE (19:59)
[2023-09-02] MEDS: Bupivacaine 0.5%/EPINEPHrine 1:200,000 30 ML SDV INJECT ONE (20:25)
== END 2023-09-02 20:50 | disposition home or self-care (01) ==
LOC: JD.ED 16:48
DX: K04.7 Periapical abscess without sinus (principal); K02.9 Dental caries, unspecified; Z90.49 Acquired absence of other specified parts of digestive tract; Z79.899 Other long term (current) drug therapy
CPT/HCPCS: 64400; 96372; 99282; A9270; J1885; J3490; 99283

== ENCOUNTER 2023-09-03 12:44 | Emergency (ER) | payer SELFPAY ==
[2023-09-03] MEDS: Sodium Chloride 0.9% 10 ML Syringe FLUSH PRN ×2 (15:00→15:18)
[2023-09-03] MEDS: Iopamidol 612 MG/ML 100 ML Bottle IVPUSH ONE (15:18)
[2023-09-03] MEDS: Ketorolac 15 MG/ML SDV IVPUSH ONE (15:43)
[2023-09-03] MEDS: cefTRIAXone 2 GM in Sodium Chloride 0.9% 100 ML IV ONE (15:44)
[2023-09-03 16:16] LABS: BASOPHILS PERCENT AUTO 0.6 % (0.0-1.0); EOSINOPHILS ABSOLUTE AUTO 0.2 K/mm3 (0.0-0.4); EOSINOPHILS PERCENT AUTO 2.9 % (0.0-6.0); HEMATOCRIT 39.1 % (37.0-47.0); IMMATURE GRAN ABSOLUTE AUTO 0.01 K/mm3 (0.00-0.05); IMMATURE GRAN PERCENT AUTO 0.1 % (0.0-0.4); LYMPHOCYTES ABSOLUTE AUTO 2.6 K/mm3 (1.0-4.8); LYMPHOCYTES PERCENT AUTO 36.7 % (24.0-44.0); MEAN CORPUSCULAR HEMOGLOBIN 30.4 pg (28.0-32.0); MEAN CORPUSCULAR HGB CONC 33.2 g/dl (32.0-36.0); MEAN CORPUSCULAR VOLUME 91.6 fl (83.0-99.0); MONOCYTES ABSOLUTE AUTO 0.6 K/mm3 (0.0-0.8); MONOCYTES PERCENT AUTO 9.1 % (0.0-8.0); NEUTROPHILS ABSOLUTE AUTO 3.5 K/mm3 (1.8-7.7); NEUTROPHILS PERCENT AUTO 50.6 % (41.0-71.0); PLATELET COUNT,PLT 203 K/mm3 (150-400); RED BLOOD CELL COUNT 4.27 M/mm3 (4.10-5.30)
[2023-09-03 16:41] LABS: A/G RATIO 1.1 (1-2); ALBUMIN 3.4 g/dl (3.4-5.0); ANION GAP 8.2 (5-15); BILIRUBIN TOTAL 0.5 mg/dL (0.2-1.0); C-REACTIVE PROTEIN 0.63 mg/dL (<0.30); CALCIUM 8.3 mg/dL (8.5-10.1); CREATININE 0.6 mg/dL (0.55-1.02); EST CRCL DRUG DOSING (CG) 129.41 mL/min; POTASSIUM,K 4.2 mEq/L (3.5-5.1); PROTEIN TOTAL,TP 6.6 g/dl (6.4-8.2)
[2023-09-03 16:46] LABS: LACTIC ACID 0.4 mmol/L (0.4-2.0)
== END 2023-09-03 17:31 | disposition home or self-care (01) ==
LOC: JD.ED 12:44
DX: K04.7 Periapical abscess without sinus (principal); L03.213 Periorbital cellulitis; Z86.16 Personal history of COVID-19; Z79.899 Other long term (current) drug therapy; Z88.5 Allergy status to narcotic agent; Z91.018 Allergy to other foods; Z91.040 Latex allergy status
CPT/HCPCS: 36415; 70487; 80053; 83605; 85025; 86140; 96365; 96375; 99284; J0696; J1885; J3490; Q9967

== ENCOUNTER 2024-04-28 20:54 | Emergency (ER) | payer SELFPAY ==
[2024-04-28] MEDS: Magnesium Citrate Solution 296 ML Bottle PO ONE (22:02)
== END 2024-04-28 22:08 ==
LOC: JD.ED 20:54 → JD.TELEMED 20:54 → EDSTATUS 21:10 → JD.ED 22:08
DX: T18.9XXA Foreign body of alimentary tract, part unspecified, initial encounter (principal); Z86.16 Personal history of COVID-19; Z79.899 Other long term (current) drug therapy; Z91.018 Allergy to other foods; Z91.040 Latex allergy status; Z88.5 Allergy status to narcotic agent; W44.A0XA Battery unspecified, entering into or through a natural orifice, initial encounter
CPT/HCPCS: 74019; 99284; A9270

== ENCOUNTER 2025-01-06 17:51 | Emergency (ER) | payer BC, MEDICAID, OTHER ==
[2025-01-06] MEDS: diphenhydrAMINE 50 MG/ML SDV IVPUSH ONE (18:46)
[2025-01-06] MEDS: Ketorolac 30 MG/ML SDV IVPUSH ONE (18:49)
== END 2025-01-06 20:49 | disposition home or self-care (01) ==
LOC: JD.ED 17:51
DX: G43.909 Migraine, unspecified, not intractable, without status migrainosus (principal); Z88.5 Allergy status to narcotic agent; Z91.018 Allergy to other foods; Z91.040 Latex allergy status; Z79.899 Other long term (current) drug therapy; Z86.16 Personal history of COVID-19; Z90.49 Acquired absence of other specified parts of digestive tract
CPT/HCPCS: 96361; 96374; 96375; 99283; J1200; J1885; J2765; J7030

== ENCOUNTER 2025-01-11 08:36 | Emergency (ER) | payer MEDICAID ==
[2025-01-11] MEDS: diphenhydrAMINE 50 MG/ML SDV IVPUSH ONE (10:10)
[2025-01-11 10:11] LABS: BASOPHILS ABSOLUTE AUTO 0.1 K/mm3 (0.0-0.2); BASOPHILS PERCENT AUTO 1.0 % (0.0-1.0); EOSINOPHILS ABSOLUTE AUTO 0.2 K/mm3 (0.0-0.4); EOSINOPHILS PERCENT AUTO 3.3 % (0.0-6.0); IMMATURE GRAN ABSOLUTE AUTO 0.02 K/mm3 (0.00-0.05); IMMATURE GRAN PERCENT AUTO 0.3 % (0.0-0.4); LYMPHOCYTES ABSOLUTE AUTO 1.4 K/mm3 (1.0-4.8); LYMPHOCYTES PERCENT AUTO 23.8 % (24.0-44.0); MEAN PLATELET VOLUME 10.0 fl (9.4-12.3); MONOCYTES ABSOLUTE AUTO 0.8 K/mm3 (0.0-0.8); MONOCYTES PERCENT AUTO 13.0 % (0.0-8.0); NEUTROPHILS ABSOLUTE AUTO 3.4 K/mm3 (1.8-7.7); NEUTROPHILS PERCENT AUTO 58.6 % (41.0-71.0); NRBC ABSOLUTE 0.00 (0.00-0.02); NRBC PERCENT 0.0 % (0.0-0.2); PLATELET COUNT,PLT 203 K/mm3 (150-400); RED BLOOD CELL COUNT 3.91 M/mm3 (4.10-5.30); WHITE BLOOD CELL COUNT,WBC 5.79 K/mm3 (3.9-11.3)
[2025-01-11] MEDS: Ondansetron 4 MG/2 ML SDV IVPUSH ONE (10:11)
[2025-01-11] MEDS: Ketorolac 30 MG/ML SDV IVPUSH ONE (10:11)
[2025-01-11 10:32] LABS: APPEARANCE,URINE CLEAR (Clear); GLUCOSE,URINE NEGATIVE (Negative); OCCULT BLOOD,URINE TRACE-INTACT (Negative)
[2025-01-11 10:48] LABS: BUPRENORPHINE SCREEN,URINE PRESUMPTIVE POSITIVE (CUTOFF=10); METHADONE SCREEN, URINE NEGATIVE (CUTOFF=200); METHAMPHETAMINES SCREEN, URINE NEGATIVE (CUTOFF=500); OXYCODONE SCREEN,URINE NEGATIVE (CUT0FF=100); THC SCREEN,URINE 20 NG/ML NEGATIVE (CUTOFF=50)
[2025-01-11 10:48] LABS: A/G RATIO 1.0 (1-2); ALANINE AMINOTRANSFERASE,ALT 175.0 U/L (14-59); ASPARTATE AMNIOTRANSFERASE,AST 332.0 U/L (15-37); BILIRUBIN TOTAL 0.6 mg/dL (0.2-1.0); BLOOD UREA NITROGEN,BUN 13.0 mg/dL (7-18); CARBON DIOXIDE,CO2 30.0 mEq/L (21-32); CHLORIDE,CL 104.0 mEq/L (98-107); CREATINE KINASE,CK 92.0 U/L (26-192); CREATININE 0.7 mg/dL (0.55-1.02); EST CRCL DRUG DOSING (CG) 115.01 mL/min; ESTIMATED GFR 123.0 mL/min (>60); GLUCOSE RANDOM 98.0 mg/dL (70-99); POTASSIUM,K 4.0 mEq/L (3.5-5.1); PROTEIN TOTAL,TP 6.0 g/dl (6.4-8.2); SODIUM,NA 139.0 mEq/L (136-145)
[2025-01-11 10:49] LABS: AMPHETAMINES SCREEN, URINE NEGATIVE (CUTOFF=500)
== END 2025-01-11 12:00 | disposition home or self-care (01) ==
LOC: JD.ED 08:36
DX: G43.909 Migraine, unspecified, not intractable, without status migrainosus (principal); J45.909 Unspecified asthma, uncomplicated; Z86.16 Personal history of COVID-19; Z90.49 Acquired absence of other specified parts of digestive tract; Z88.5 Allergy status to narcotic agent; Z91.040 Latex allergy status; Z91.018 Allergy to other foods; Z79.899 Other long term (current) drug therapy
CPT/HCPCS: 36415; 80053; 80306; 81001; 81025; 82550; 83735; 85025; 96361; 96374; 96375; 99284; J1200; J1885; J2405; J2765; J7030

== ENCOUNTER 2025-01-17 10:18 | Emergency (ER) | payer MEDICAID | END 2025-01-17 13:45 | disposition home or self-care (01) | LOC: JD.ED 10:18 | DX: K59.00 Constipation, unspecified (principal); J45.909 Unspecified asthma, uncomplicated; F17.200 Nicotine dependence, unspecified, uncomplicated; Z86.16 Personal history of COVID-19; Z90.49 Acquired absence of other specified parts of digestive tract; Z88.5 Allergy status to narcotic agent; Z91.018 Allergy to other foods; Z91.040 Latex allergy status; Z79.899 Other long term (current) drug therapy | CPT/HCPCS: 74018; 74018-26; 99284 ==